=== PATIENT | female | born 1990 | race Caucasian/White ===

== ENCOUNTER 2022-07-02 15:52 | Emergency (ER) | payer OTHER ==
[2022-07-02 17:16] VITALS: BP 135/92; PULSE 88; RESP 18; TEMP 98; BMI 22.6
[2022-07-02] MEDS ORDERED: diazePAM 5 MG TABLET PO ONE (18:37)
[2022-07-02] MEDS ORDERED: KETOROLAC TROMETHAMINE 30 MG/1 ML VIAL IM ONE (18:37)
[2022-07-02] MEDS ORDERED: diazePAM 5 MG TABLET ONE (18:41)
[2022-07-02] MEDS ORDERED: KETOROLAC TROMETHAMINE 30 MG/1 ML VIAL ONE (18:42)
== END 2022-07-02 20:35 | disposition home or self-care (01) ==
LOC: JER 15:52 → JERFT 15:52
PROC: 3E0233Z Introduction of Anti-inflammatory into Muscle, Percutaneous Approach (ICD-10-PCS; principal; 2022-07-02)
DX: M25.512 Pain in left shoulder (principal); M54.50 Low back pain, unspecified; V43.52XA Car driver injured in collision with other type car in traffic accident, initial encounter
CPT/HCPCS: 72070-TC-FY; 72125-TC; 73030-TC-LT-FY; 99285-25